=== PATIENT | male | born 1960 | race Caucasian/White ===

== ENCOUNTER → 2018-09-24 | Outpatient (CLI) | payer OTHER ==
[~2018-09-24] MED LIST: AMITRIPTYLINE H25 MG PO; BACLOFEN10 MG PO; CIMETIDINE300 MG PO; CIMETIDINE300 MG/5 M; CLOPIDOGREL75 MG PO; FLOMAX0.4 MG PO; GABAPENTIN300 MG PO; LEVETIRACETAM500 MG PO; LOSARTAN POTASS25 MG PO; NORCO 10-325 T1 EACH
== END ==
LOC: CARD 08:52
PROVIDERS: ATTEND Family Medicine
DX: I70.202 Unspecified atherosclerosis of native arteries of extremities, left leg (principal)
CPT/HCPCS: 93926

== ENCOUNTER → 2018-11-06 | Day surgery (SDC) | payer MEDICARE, OTHER ==
[2018-11-04 12:44] LABS: BASOPHILS % 0.5 % (0.0-1.0); EOSINOPHILS # (AUTO) 0.1 (0.0-0.4); EOSINOPHILS % 1.5 % (0.0-6.0); HEMATOCRIT 47.1 % (38.2-49.6); HEMOGLOBIN 15.6 g/dL (14.0-18.0); LYMPHOCYTES # (AUTO) 1.7 (1.0-3.2); LYMPHOCYTES % 22.3 % (18.0-39.1); MEAN CORPUSCULAR HGB CONC 33.1 g/dL (31-35); MEAN CORPUSCULAR VOLUME 93.6 fL (81-99); MONOCYTES # (AUTO) 0.4 (0.2-0.8); MONOCYTES % 4.9 % (4.4-11.3); NEUTROPHILS # (AUTO) 5.3 (2.1-6.9); NEUTROPHILS % 70.5 % (38.7-80.0); PLATELET COUNT 203 x10e3/uL (140-360); RED BLOOD COUNT 5.03 x10e6/uL (4.3-5.7); RED CELL DISTRIBUTION WIDTH 12.3 % (11.7-14.4)
[2018-11-04 12:53] LABS: INR 0.9; PROTHROMBIN TIME 12.6 seconds (11.9-14.5)
[2018-11-04 13:02] LABS: ALANINE AMINOTRANSFERASE 12 IU/L (0-55); ALBUMIN 4.2 g/dL (3.5-5.0); ALBUMIN/GLOBULIN RATIO 1.1 (0.8-2.0); ALKALINE PHOSPHATASE 90 IU/L (40-150); ANION GAP 14.1 mmol/L (8-16); BLOOD UREA NITROGEN 10 mg/dL (7-26); BUN/CREATININE RATIO 10 (6-25); CALCIUM 9.8 mg/dL (8.4-10.2); CARBON DIOXIDE 26 mmol/L (22-29); CHLORIDE 101 mmol/L (98-107); CREATININE, SERUM 0.97 mg/dL (0.72-1.25); EST GLOMERULAR FILTRATION RATE > 60 ML/MIN (60-); GLUCOSE 103 mg/dL (74-118); POTASSIUM 4.1 mmol/L (3.5-5.1); SODIUM 137 mmol/L (136-145)
--- NOTE | 2018-11-04 15:59 | NUR ---
Dr. Sterling notified of allergy to shrimp. Dr. Sterling ordered premedications solumedrol 125mg IV one time and benadryl 50mg po.
[~2018-11-06] VITALS: Ht 180.3 cm; Wt 88.0 kg
[~2018-11-06] MED LIST changes: +DIPHENHYDRAMINE HCL 25 MG CAP ONE; +FENTANYL CITRATE/PF 100MCG/2 ML INJ ONE; +HEPARIN SOD/SOD CHLORIDE 2,000 ML ONE; +IOPAMIDOL 300MG/ML 100 ML INFUS..BTL IV ONE; +IOPAMIDOL 370 MG/ML 200 ML INFUS..BTL INJ ONE; +LIDOCAINE HCL 2% LOCAL 20 ML VIAL ONE; +METHYLPREDNISOLONE SOD SUCC 125 MG/2ML VIAL ONE; +MIDAZOLAM HCL 2 MG/2 ML VIAL ONE; +SODIUM CHLORIDE 0.9% 1000ML 1,000 ML ONE; +VERAPAMIL HCL 2.5 MG/ML 2 ML VIAL ONE
[2018-11-06 08:50] VITALS: BP 125/105
[2018-11-06 12:15] VITALS: BP 108/77
--- NOTE | 2018-11-06 12:15 | NUR ---
1215 bedside report received from HARPAL Mcleod. Alert oriented and appropriate, PERRLA, respirations even and unlabored to room air. Pulses PP x4 not palpable.No Doppler pulses bilateral PT/DP Cap fill brisk < 3 sec. Toes warm to touch. Skin warm and dry integrity appears D/I. IV 20g to rt hand presents healthy w/o s/s of infiltration or complaint. Abdomen soft and supple. pt offered toileting, denies needing of POC. Currently w/o complaint of pain or need. TR band anna 1245, decrease air volume. No gross issues pain ,pallor,pressure or dysrhythmia.Normal neurovascular function. Bilateral superfical femoral sticks dry and intake No hematomas or oozing. Back to baseline orientation voided qs. Tolerating po intake. Erica caregiver/friend at bedside ISSA Maldonado information ok. per patient. .
[2018-11-06 12:30] VITALS: BP 115/86
[2018-11-06 12:45] VITALS: BP 105/55
[2018-11-06 13:00] VITALS: BP 107/86
[2018-11-06 13:15] VITALS: BP 111/82
--- NOTE | 2018-11-06 13:15 | NUR ---
1315 Pt meets DC criteria.Rt wrist tr band site assessed for s/s of complication and presence of hematoma. skin warm, dry, no discolor, and pulses present. IV removed from rt hand . Distal tip appears intact. VS WNL. Pt denies pain, sob, or need at this time. Friend/significant other/friend with pt ok for information release. at bedside. Review of discharge paperwork and follow up instructions. verbalized understanding. Pt to wheelchair and transported to front of hospital. Transferred to private vehicle under own strength w/o incident with DC paperwork in hand. -ds/rn
--- NOTE | 2018-11-06 13:30 | NUR ---
0800 Friend states will call for appt. and speak with nurse or office regarding other POC information and schedule 2wk recheck Pt w/o gross issues pain,pallor,pressure and dysthymia. ds/rn
--- NOTE | 2018-11-07 00:34 | Operative Report ---
DATE OF PROCEDURE: SURGEON: Sukhi Sterling DO PROCEDURES PERFORMED: 1. Iliac and femoral artery angiography bilateral. 2. Coronary angiography with graft angiography and left heart catheterization. 3. Conscious sedation 60 minutes. 4. Abdominal aortography. 5. Left carotid artery angiography. 6. Left subclavian angiography. PREPROCEDURE DIAGNOSES: 1. Coronary artery disease, status post bypass surgery with abnormal stress test. 2. Peripheral artery disease. ESTIMATED BLOOD LOSS: 20 mL. SPECIMENS REMOVED: None. PROCEDURE IN DETAIL: After informed consent was obtained, the patient was brought to the cardiac catheterization laboratory in a fasting and nonsedated state. Bilateral groins and right wrist were prepped and draped in usual sterile fashion. A 2% lidocaine was infiltrated over the right and left groins, and I gained access, however, on angiography of bilateral common femoral extending into the external iliac systems was found to be occluded throughout the iliac. The patient has contracture left upper extremity with the harvested radial arteries. Again, access into the right radial artery and performed coronary angiography and left heart catheterization and graft angiography. I then performed left carotid and left subclavian angiography. Next, I performed abdominal aortography. The patient tolerated the procedure well with no immediate complications and transported back to his room in stable condition. PROCEDURAL FINDINGS: 1. The left main coronary has an ostial severe 70% stenosis with dampening of the 5-Icelandic catheter. 2. The left anterior descending coronary artery has [id number] diffuse disease and has competitive flow in the mid to distal portion. 3. Ramus intermedius coronary artery has mild diffuse disease. 4. Left circumflex coronary provides two obtuse marginal vessels with [id number] diffuse disease. 5. The right coronary artery is occluded in its midportion. 6. There is a saphenous vein graft seen anastomosed to the distal RCA and is patent. 7. One other saphenous vein graft was found to be occluded. 8. Difficulty cannulating the left internal mammary artery. However, and on selective subclavian shot, there appears to be a patent ROBERT. PERIPHERAL ARTERIAL FINDINGS: 1. The distal infrarenal abdominal aorta is 100% occluded and extends into the bilateral common iliac arteries. 2. Left subclavian artery appears to have a 50% to 60% stenosis. 3. The left internal carotid artery has a 50% to 60% ulcerated stenosis. IMPRESSION: 1. Severe multivessel coronary artery disease with patent RCA and left internal mammary graft. 2. Severe peripheral artery disease with occluded aortoiliac system. RECOMMENDATIONS: Continue aggressive medical therapy. We will discuss surgical options. DO NIDHI Avendano/MODL /[id number]
--- NOTE | 2019-01-08 12:41 | Operative Report ---
DATE OF PROCEDURE: 11/06/2018 SURGEON: Sukhi Sterling DO ADDENDUM: The patient underwent ultrasound guidance for arterial access. All other details of procedure dictated in prior cardiac procedure note. DO NIDHI Avendano/MODL /[id number]
== END | disposition home or self-care (01) ==
LOC: CATH LAB 08:27
PROVIDERS: ATTEND Internal Medicine Cardiovascular Disease
DX: I25.810 Atherosclerosis of coronary artery bypass graft(s) without angina pectoris (principal); R94.39 Abnormal result of other cardiovascular function study; I73.9 Peripheral vascular disease, unspecified; I74.5 Embolism and thrombosis of iliac artery; I74.09 Other arterial embolism and thrombosis of abdominal aorta; I65.22 Occlusion and stenosis of left carotid artery; Z01.812 Encounter for preprocedural laboratory examination; Z79.02 Long term (current) use of antithrombotics/antiplatelets; Z95.1 Presence of aortocoronary bypass graft
CPT/HCPCS: 36222; 36225; 36415; 75625; 80053; 85025; 85610; 93459; C1769 ×3; C1887; J2001; J2250; J2930; J3010; J7030; Q9967 ×2

== ENCOUNTER → 2020-04-28 | Outpatient (CLI) | payer MEDICARE ==
[~2020-04-28] MED LIST changes: -DIPHENHYDRAMINE HCL 25 MG CAP ONE; -FENTANYL CITRATE/PF 100MCG/2 ML INJ ONE; -HEPARIN SOD/SOD CHLORIDE 2,000 ML ONE; -IOPAMIDOL 300MG/ML 100 ML INFUS..BTL IV ONE; -IOPAMIDOL 370 MG/ML 200 ML INFUS..BTL INJ ONE; -LIDOCAINE HCL 2% LOCAL 20 ML VIAL ONE; -METHYLPREDNISOLONE SOD SUCC 125 MG/2ML VIAL ONE; -MIDAZOLAM HCL 2 MG/2 ML VIAL ONE; -SODIUM CHLORIDE 0.9% 1000ML 1,000 ML ONE; -VERAPAMIL HCL 2.5 MG/ML 2 ML VIAL ONE
== END ==
LOC: RAD 10:01
PROVIDERS: ATTEND Student in an Organized Health Care Education/Training Program
DX: M25.512 Pain in left shoulder (principal); M25.552 Pain in left hip

== ENCOUNTER → 2020-04-28 | Outpatient (CLI) | payer MEDICARE | LOC: CARD 09:59 | PROVIDERS: ATTEND Family Medicine | DX: I70.203 Unspecified atherosclerosis of native arteries of extremities, bilateral legs (principal); I65.23 Occlusion and stenosis of bilateral carotid arteries | CPT/HCPCS: 93880; 93925 ==

== ENCOUNTER → 2020-10-20 | Outpatient (CLI) | payer MEDICARE ==
[~2020-10-20] MED LIST changes: +IOPAMIDOL 370 MG/ML 200 ML INFUS..BTL INJ ONE; +SODIUM CHLORIDE 0.9% 100 ML ONE
== END ==
LOC: CT 09:31
PROVIDERS: ATTEND Internal Medicine
DX: I73.9 Peripheral vascular disease, unspecified (principal)
CPT/HCPCS: 75635; J7050; Q9967